=== PATIENT | female | born 1970 | race Caucasian/White ===

== ENCOUNTER 2017-02-11 17:32 | Emergency (ER) | payer OTHER ==
[2017-02-11] MEDS ORDERED: Acetaminophen TAB* 325 MG PO ONE (17:47)
[2017-02-11] MEDS ORDERED: NS 0.9% 1000 ML* 1,000 ML IV ONE ×2 (17:47→18:22)
[2017-02-11] MEDS ORDERED: Ondansetron INJ* 2 MG/ML VIAL ONE (18:01)
[2017-02-11] MEDS ORDERED: Ondansetron INJ* 2 MG/ML VIAL IV ONE (18:02)
--- NOTE | 2017-02-11 18:58 | ED ---
Marysol Dawson SooYoung, scribed for Izaiah Brown MD on 02/11/17 at 1841 . Complex/Multi-Sys Presentation - HPI Summary HPI Summary: Pt is a 46 y/o F presenting to the ED with c/o sudden-onset high fever yesterday afternoon and worsened last night. Pt describes chest pain as "elephant on chest." Associate sx: skin hurts and "is on fire", neck pain, vomiting, nausea, diffuse red bumps on LLE and RUE onset yesterday AM. Pt denies cough except when taking deep breaths, which started yesterday. Denies chest congestion, urinary sx, diarrhea. She took Tylenol for fever at 16:00, mildly alleviating. - History Of Current Complaint Chief Complaint: EDFever Time Seen by Provider: 02/11/17 17:48 Hx Obtained From: Patient Onset/Duration: Sudden Onset, Still Present Timing: Constant Severity Currently: Moderate Severity Initially: Severe Alleviating Factor(s): OTC meds Associated Signs And Symptoms: Positive: Chest Pain - "chest heaviness", Nausea , Vomiting, Fever, Other - pos: neck pain, rash, skin "is on fire". Negative: Cough, Diarrhea - Allergies/Home Medications Allergies/Adverse Reactions: Allergies Allergy/AdvReac Type Severity Reaction Status Date / Time Penicillins [PCN] Allergy Rash Verified 02/02/17 13:09 Sulfa Antibiotics Allergy Anaphylatic Verified 02/02/17 13:09 Shock PMH/Surg Hx/FS Hx/Imm Hx Previously Healthy: Yes Cardiovascular History: Reports: Hx Hypertension Opthamlomology History: Denies: Hx Legally Blind EENT History: Denies: Hx Deafness - Surgical History Surgery Procedure, Year, and Place: knee surgery, eye strabismus Infectious Disease History: No Infectious Disease History: Denies: Traveled Outside the [place] in Last 30 Days - Social History Occupation: Employed Full-time Lives: With Family Alcohol Use: Occasionally Hx Substance Use: No Substance Use Type: Reports: None Hx Tobacco Use: No Smoking Status (MU): Never Smoked Tobacco Review of Systems Positive: Fever Negative: Other - neg: chest congestion Positive: Chest Pain Negative: Cough Positive: Vomiting, Nausea. Negative: Diarrhea Negative: other - neg: urinary sx Skin: Other - pos: skin is on fire Positive: Rash All Other Systems Reviewed And Are Negative: Yes Physical Exam - Summary Physical Exam Summary: The patient is well-nourished in no acute distress and in no acute pain. The skin is warm and dry and skin color reflects adequate perfusion. HEENT: The head is normocephalic and atraumatic. The pupils are equal and reactive. The conjunctivae are clear and without drainage. Nares are patent and without drainage. Mouth reveals moist mucous membranes and the throat is without erythema and exudate. The external ears are intact. The ear canals are patent and without drainage. The tympanic membranes are intact. Neck has tenderness to paracervical spine. No meningeal sign's. Neck has mild anterior cervical tenderness. There are no carotid bruits. There is no neck vein distension. Respiratory: Chest is non-tender. Lungs are clear to auscultation and breath sounds are symmetrical and equal. Cardiovascular: Heart is tachycardic. There is soft systolic ejection murmur. There is no peripheral edema and pulses are symmetrical and equal. Abdomen: The abdomen is soft and non-tender. There are normal bowel sounds heard in all four quadrants and there is no organomegaly palpated. Musculoskeletal: There is no back pain noted. Extremities are non-tender with full range of motion. There is good capillary refill. There is no peripheral edema or calf tenderness elicited. Neurological: Patient is alert and oriented to person, place and time. The patient has symmetrical motor strength in all four extremities. Cranial nerves are grossly intact. Deep tendon reflexes are symmetrical and equal in all four extremities. Psychiatric: The patient has an appropriate affect and does not exhibit any anxiety or depression. Triage Information Reviewed: Yes Vital Signs On Initial Exam: Initial Vitals Temp Pulse Resp BP Pulse Ox 103.2 F 149 16 115/58 94 02/11/17 17:34 02/11/17 17:34 02/11/17 17:34 02/11/17 17:34 02/11/17 17:34 Vital Signs Reviewed: Yes Diagnostics - Vital Signs Vital Signs Temp Pulse Resp BP Pulse Ox 02/11/17 17:34 103.2 F 149 16 115/58 94 - Laboratory Lab Statement: Any lab studies that have been ordered have been reviewed, and results considered in the medical decision making process. Complex Multi-Symp Course/Dx Course Of Treatment: Ms. Jasmine presented with a high fever and borderliine tachycardia. She is getting symptomatic treatment and fluids while her W/U is in progress. She does not meet sepsis criteria yet. - Diagnoses Provider Diagnoses: Fever and chills Discharge - Discharge Plan Condition: Stable Disposition: OTHER Discharge Disposition Comment: SO to Dr. Ernst at shift change pending labs, CXR, dispo Referrals: No Primary Care Phys,NOPCP [Primary Care Provider] - [facility] [place] [facility] REFERRAL [Outside] The documentation as recorded by the Marysol vincent SooYoung accurately reflects the service I personally performed and the decisions made by me, Izaiah Brown MD.
[2017-02-11 19:05] LABS: Hematocrit 41 % (35-47); Hemoglobin 14.2 g/dl (12.0-16.0); Mean Corpuscular HGB Conc 35 g/dl (31-36); Mean Corpuscular Hemoglobin 32 pg (27-31); Mean Corpuscular Volume 92 fL (80-97); Mean Platelet Volume 9 um3 (7.4-10.4); Red Blood Count 4.44 10^6/ul (4.0-5.4); Red Cell Distribution Width 13 % (10.5-15); White Blood Count 9.2 10^3/ul (3.5-10.8)
[2017-02-11 19:15] LABS: Albumin 3.9 g/dL (3.2-5.2); BUN/Creatinine Ratio 14.6 (8-20); C Reactive Protein 177.79 mg/L (< 5.00); Calcium 9.2 mg/dL (8.6-10.3); EGFR African American 88.2 (>60); EGFR Non-African American 68.6 (>60); Globulin 3.5 g/dL (2-4); Total Bilirubin 0.9 mg/dL (0.2-1.0); Total Protein 7.4 g/dL (6.4-8.9)
--- NOTE | 2017-02-11 19:15 | RAD ---
INDICATION: Fever COMPARISON: None TECHNIQUE: PA and lateral dual-energy views were obtained. FINDINGS: Bones/Soft Tissues: There are no acute bony findings. Cardiomediastinal: The cardiomediastinal silhouette is normal. Lungs: There is no focal consolidation. There is mild diffuse interstitial change with a small amount of fluid in the fissures. Correlate with history of mild interstitial congestion versus interstitial pneumonitis. Pleura: There are no significant pleural effusions. Other: None IMPRESSION: MILD NONSPECIFIC INTERSTITIAL PROMINENCE. CONSIDER INTERSTITIAL CONGESTION VERSUS INTERSTITIAL PNEUMONITIS. RECOMMEND FOLLOW-UP
[2017-02-11 19:25] LABS: Urine Bacteria Absent (Absent); Urine Bilirubin Negative (Negative); Urine Glucose Negative (Negative); Urine Nitrite Negative (Negative)
[2017-02-11] MEDS ORDERED: Potassium Chlor TAB* 20 MEQ TAB.ER PO ONE (20:46)
[2017-02-11] MEDS ORDERED: Ketorolac INJ* 30 MG/ML 1 ML VIAL IV PUSH ONE (21:10)
[2017-02-11] MEDS ORDERED: Iohexol 350* (CONTRAST) 500 ML MDV IV ONE (21:19)
--- NOTE | 2017-02-11 21:40 | RAD ---
INDICATION: Chest pain. Short of breath. Evaluate for pulmonary embolus. COMPARISON: Chest x-ray same date TECHNIQUE: Axial source images were obtained from the thoracic inlet to the hemidiaphragms following administration of [address] angiographic technique was utilized. Coronal and sagittal reconstructed images were acquired. CHEST FINDINGS: Neck/thyroid: The visualized neck to include the thyroid appear normal. Chest wall: There are no acute abnormalities of the bony thorax or chest wall. There is no supraclavicular, infraclavicular, or axillary lymphadenopathy. Lungs : There are no pulmonary parenchymal masses or infiltrates. There is mild bibasilar atelectasis. The pulmonary interstitium appears prominent. There are no endobronchial lesions. Cardiomediastinal structures: There is no CT evidence of acute pulmonary embolic disease. The heart is normal in size. There is no pericardial effusion. There is no evidence of aortic aneurysm or dissection. There is no mediastinal or hilar adenopathy. The esophagus appears normal. Pleura : Small focus of pleural nodularity along the major fissure on the right. Other: None. IMPRESSION: NO CT EVIDENCE OF ACUTE PULMONARY EMBOLIC DISEASE. COARSENING OF THE PULMONARY INTERSTITIUM
[2017-02-11 22:46] VITALS: BP 132/69
--- NOTE | 2017-02-12 03:55 | ED ---
Keke Dawson Edward, yudithibed for Aleyda Ernst MD on 02/11/17 at 1942 . Progress - Progress Note Progress Note: Pt signed out by Dr. Brown. Pt initially c/o body aches, subjective fevers and chills. Pt's symptoms started yesterday. Denies cough. Associated sx: neck pain , red bumps on RLE and R shoulder that appeared yesterday morning, SOB aggravated when the pt rolls on her side. There is no SOB on exertion. Pt states she can't get a full, deep breath. On re-eval the pt is able to ambulate well and is not toxic appearing. PE - Appearance: Alert, conversive, nontoxic appearing Skin: Warm, dry, no mottling, no rashes, no contusions HEENT: EOMI, PERRL, moist mucous membranes Neck: No masses on the neck, supple Respiratory: Clear to auscultation, breath sounds present, no rales, no rhonchi , no wheezes. Splinting. Cardiovascular: RRR, pulses are symmetrical in both lower and upper extremities Abdomen: Soft, non-tender Bowel Sounds: Present Musculoskeletal: No CVA tenderness, no obvious deformity, moving all extremities in a grossly normal manner. There is no tenderness to palpation of the chest. Neurological: A&Ox3, CN II-XII Intact, moving all extremities symmetrically Psychiatric: Normal affect and mood pleuritic cp - Results/Orders Results/Orders: CXR - MILD NONSPECIFIC INTERSTITIAL PROMINENCE. CONSIDER INTERSTITIAL CONGESTION VERSUS INTERSTITIAL PNEUMONITIS. RECOMMEND FOLLOW-UP CHEST/THORAX CTA - NO CT EVIDENCE OF ACUTE PULMONARY EMBOLIC DISEASE. COARSENING OF THE PULMONARY INTERSTITIUM Re-Evaluation - Re-Evaluation 1 Re-Evaluation Time: 21:03 Comment: Informed pt of lab results 2 Re-Evaluation Time: 22:38 Comment: Discuss plan to d/c Course/Dx - Course Course Of Treatment: Ms. Jasmine presented with a high fever and borderliine tachycardia. She is getting symptomatic treatment and fluids while her W/U is in progress. She does not meet sepsis criteria yet. CXR and CHEST CTA negative. Pt will be d/c home with f/u with PCP. - Diagnoses Provider Diagnoses: Fever and chills The documentation as recorded by the scribe, Keke,Edward accurately reflects the service I personally performed and the decisions made by me, Aleyda Ernst MD.
== END 2017-02-11 22:45 | disposition home or self-care (01) ==
LOC: ED 17:32
DX: R50.9 Fever, unspecified (principal); R68.83 Chills (without fever)
CPT/HCPCS: 36415; 71020; 71275; 80053; 81003; 81015; 83605; 84484; 85025; 85610; 86140; 87040; 87077; 87150; 87205; 87502; 96374; 99283; A9270-GY; J1885; J2405; Q9967